=== PATIENT | female | born 1955 | race Caucasian/White ===

== ENCOUNTER → 2018-07-25 | Outpatient (CLI) | payer BC ==
--- NOTE | 2018-07-25 09:47 | EKG ---
FACILITY: [facility] PATIENT NAME: CONNIE MORGAN : [id number] MR: [id number]: [id number] EXAM DATE: ORDERING PHYSICIAN: DALE GUAN TECHNOLOGIST: ZHOU Kim Reason : PREOP-EYE Blood Pressure : / mmHG Vent. Rate : 054 BPM Atrial Rate : 054 BPM P-R Int : 156 ms QRS Dur : 078 ms QT Int : 416 ms P-R-T Axes : 062 067 031 degrees QTc Int : 394 ms Sinus bradycardia Low voltage QRS Septal infarct , age undetermined Abnormal ECG No previous ECGs available Confirmed by DALE MANNING ([id number]) on 07/26/2018 6:04:53 AM Referred By: ROGE Confirmed By:DALE MANNING
== END ==
LOC: RESP 09:37
PROVIDERS: ATTEND Anesthesiology
DX: Z01.810 Encounter for preprocedural cardiovascular examination (principal); R00.1 Bradycardia, unspecified; I45.81 Long QT syndrome
CPT/HCPCS: 93005